=== PATIENT | male | born 1950 | race Two or more races ===

== ENCOUNTER 2021-06-21 16:20 | Emergency (ER) | payer OTHER | END 2021-06-21 18:59 | disposition home or self-care (01) | LOC: ER 16:20 | DX: M54.59 Other low back pain (principal); Z95.0 Presence of cardiac pacemaker ==

== ENCOUNTER 2021-06-22 08:00 | Day surgery (SDC) | payer OTHER | END 2021-06-22 10:46 | disposition home or self-care (01) | LOC: CIR.AMB 08:00 → EDSTATUS 09:43 → O/R 09:44 → CIR.AMB 10:46 → EDSTATUS 12:00 → O/R 15:50 | PROVIDERS: ATTEND Anesthesiology Pain Medicine | DX: M99.03 Segmental and somatic dysfunction of lumbar region (principal) ==